=== PATIENT | male | born 1960 | race Caucasian/White ===

== ENCOUNTER → 2017-06-22 | Outpatient (REF) | payer BC ==
[~2017-06-22] MED LIST: ADV500INH INH; ALLE180T33 PO; BENA25CA2 PO; BREO1INH3 INH; CETI10TA PO; MOME50SP; MONT10TA2 PO; OMEP20CA3 PO; PRED10TA2 PO; QVAR1AER2 INH; RANI300T PO; SING10TA32 PO; TYLE167L PO; VENTAER IN; VICO5TAB16 PO; vicodin PO
[2017-06-22 13:33] LABS: BASO % 0.4 % (0.0-1.0); EOS # 0.1 K/mm3 (0.0-0.50); EOS % 1.6 % (0.0-3.0); LARGE UNSTAINED CELL # 0.1 K/mm3 (0.0-0.4); LARGE UNSTAINED CELL % 1.4 % (0.0-4.0); LYMPH # 0.5 K/mm3 (1.5-4.5); MEAN CORPUSCULAR HEMOGLOBIN 27.4 pg (27.0-33.0); MEAN CORPUSCULAR HGB CONC 34.5 g/dl (32.0-36.5); MEAN CORPUSCULAR VOLUME 79.4 fl (80.0-96.0); MONO # 0.5 K/mm3 (0.0-0.8); MONO % 6.2 % (0.0-5.0); NEUTROPHILS # 6.6 K/mm3 (1.8-7.7); NEUTROPHILS % 85.5 % (36.0-66.0); PLATELET COUNT, AUTOMATED 247 k/mm3 (150-450); WHITE BLOOD COUNT 7.8 K/mm3 (4.0-10.0)
[2017-06-22 15:57] LABS: ADD MANUAL DIFFER NO; DIFF SLIDE NUMBER 265
[2017-06-25 00:06] LABS: E001-IgE Cat Epith/Dander < 0.10 kU/L (Class 0); E005-IgE Dog Dander 0.35 kU/L (Class I); G002-IgE Bermuda Grass < 0.10 kU/L (Class 0); G008-IgE Kentucky Bluegrass < 0.10 kU/L (Class 0); M001-IgE Penicillium chrysogen 0.56 kU/L (Class II); M002 IgE Cladosporium herbaru < 0.10 kU/L (Class 0); M003 IgE Aspergillus fumigatu 0.19 kU/L (Class 0/I); M006-IgE Alternaria alternata 1.41 kU/L (Class III); T001-IgE Maple/Box Elder < 0.10 kU/L (Class 0); T003-IgE Common Silver Birch < 0.10 kU/L (Class 0); T007-IgE Oak, White < 0.10 kU/L (Class 0); T008-IgE Elm, American 0.16 kU/L (Class 0/I); T015-IgE Ash, White 0.12 kU/L (Class 0/I); T041-IgE Hickory, White < 0.10 kU/L (Class 0); W009-IgE Plantain, English 0.11 kU/L (Class 0/I); W014-IgE Pigweed, Rough < 0.10 kU/L (Class 0); W018-IgE Sheep Sorrel < 0.10 kU/L (Class 0)
== END ==
LOC: M LAB REF 12:58
PROVIDERS: ATTEND Internal Medicine Pulmonary Disease
DX: J45.40 Moderate persistent asthma, uncomplicated (principal)

== ENCOUNTER → 2017-08-16 | Outpatient (CLI) | payer BC ==
[2017-08-21 00:07] LABS: AUREOBASIDIUM PULLULANS Negative (Negative); MICROPOLYSPORA FAENI AB Negative (Negative); PIGEON SERUM AB Negative (Negative); THERMOACTINOMYCES SACCHARI Negative (Negative); THERMOACTINOMYCES VULGARIS Negative (Negative)
== END ==
LOC: M SMT 11:27
PROVIDERS: ATTEND Allergy & Immunology Allergy
DX: J45.50 Severe persistent asthma, uncomplicated (principal); D86.9 Sarcoidosis, unspecified; G47.30 Sleep apnea, unspecified; J30.81 Allergic rhinitis due to animal (cat) (dog) hair and dander

== ENCOUNTER 2018-06-14 06:16 | Day surgery (SDC) | payer BC ==
[2018-06-14] MEDS ORDERED: dexameTHASONE 4 MG/ML 1ML VIAL (J1100) As Ordered (06:18)
[2018-06-14] MEDS ORDERED: KETOROLAC 60 MG/2 ML VIAL (J1885) As Ordered (06:18)
[2018-06-14] MEDS ORDERED: ONDANSETRON 4MG/2ML VIAL (J2405) As Ordered (06:18)
[2018-06-14] MEDS ORDERED: PROPOFOL 200 MG/20 ML VIAL As Ordered ×2 (06:18→07:51)
[2018-06-14] MEDS ORDERED: ROCURONIUM BROMIDE 50 MG/5 ML VIAL As Ordered ×2 (06:19→07:51)
[2018-06-14] MEDS ORDERED: LIDOCAINE 2% INJ 100 MG/5 ML SDV (FOR ANES.) As Ordered (06:19)
[2018-06-14] MEDS ORDERED: fentaNYL 250 MCG/5 ML INJECTION (J3010) As Ordered (06:23)
[2018-06-14] MEDS ORDERED: MIDAZOLAM INJ 2 MG/2 ML VIAL (J2250) As Ordered (06:23)
[2018-06-14] MEDS ORDERED: LR 1,000 ML IV ×3 (06:30→09:15)
[2018-06-14] MEDS ORDERED: ceFAZolin 1GM INJ (J0690 PER 500MG) As Ordered (06:51)
[2018-06-14] MEDS: ceFAZolin SOD 1 GM in D5W MINI-BAG PLUS 50 ML IV (07:27)
[2018-06-14] MEDS ORDERED: SUGAMMADEX SODIUM 500 MG/5 ML VIAL (BRIDION) As Ordered (07:52)
[2018-06-14] MEDS: BUPIVACAINE/EPIN 0.25% 30 ML VIAL As Ordered ×2 (08:35)
[2018-06-14] MEDS ORDERED: ALBUTEROL SULFATE 2.5 MG/0.5 ML INH NEB SOLN As Ordered (08:46)
[2018-06-14] MEDS ORDERED: PERCOCET 5MG/325MG TAB As Ordered (09:04)
[2018-06-14] MEDS ORDERED: fentaNYL 100 MCG/2 ML INJECTION (J3010) As Ordered (09:04)
[2018-06-14] MEDS: PERCOCET 5MG/325MG TAB PO ×2 (09:08→09:48)
[2018-06-14] MEDS: fentaNYL 100 MCG/2 ML INJECTION (J3010) IV (09:08)
[2018-06-14] MEDS ORDERED: ALBUTEROL SULFATE 2.5 MG/0.5 ML INH NEB SOLN INH (09:15)
[2018-06-14] MEDS ORDERED: NORCO, ANEXSIA 5/325MG TABLET (HYDROcodone/ACETAMINOPHEN) PO (09:15)
[2018-06-14] MEDS ORDERED: ONDANSETRON 4MG/2ML VIAL (J2405) IV ×2 (09:15)
[2018-06-14] MEDS ORDERED: MORPHINE 2 MG/ML 1ML SYRINGE (J2270) IV (09:15)
== END 2018-06-14 13:30 | disposition home or self-care (01) ==
LOC: M SDC 06:16
DX: K42.0 Umbilical hernia with obstruction, without gangrene (principal); G47.30 Sleep apnea, unspecified; Z91.040 Latex allergy status; K21.9 Gastro-esophageal reflux disease without esophagitis; E66.01 Morbid (severe) obesity due to excess calories; Z79.899 Other long term (current) drug therapy; J45.909 Unspecified asthma, uncomplicated
CPT/HCPCS: 49587

== ENCOUNTER → 2018-09-06 | Outpatient (CLI) | payer BC | LOC: M ADAMS 14:03 | DX: M79.642 Pain in left hand (principal) | CPT/HCPCS: 73130 ==

== ENCOUNTER 2019-08-11 12:58 | Emergency (ER) | payer BC ==
[~2019-08-11] VITALS: Ht 185.4 cm; Wt 127.5 kg
[~2019-08-11 12:58] MED LIST changes: -OMEP20CA3 PO; +OMEP20CA4 PO; -QVAR1AER2 INH; +QVAR80AE10 INH; +VENTAER; -VICO5TAB16 PO; +VICO5TAB17 PO; +XOLA150S IM
[2019-08-11] MEDS ORDERED: ADACEL/BOOSTRIX VACCINE (DIPHTH/PERTUSS/ACELL/TETANUS)0.5ML SYR (90715) IM ONE (15:45)
[2019-08-11] MEDS ORDERED: PERCOCET 5MG/325MG TAB PO ONE (15:45)
[2019-08-11] MEDS ORDERED: ACETAMINOPHEN 325 MG TAB PO ONE (15:45)
[2019-08-11] MEDS ORDERED: PERCOCET PO (17:06)
[2019-08-11] MEDS ORDERED: MUPI30CR TOP (17:11)
[2019-08-11] MEDS ORDERED: NEOSPORIN OINT 0.9 GM PKT (FLOOR STOCK) TOP ONE (17:30)
[2019-08-11 17:38] VITALS: BP 130/80
== END 2019-08-11 17:36 | disposition home or self-care (01) ==
LOC: M ED 12:58
DX: S80.811A Abrasion, right lower leg, initial encounter (principal); S80.812A Abrasion, left lower leg, initial encounter; X58.XXXA Exposure to other specified factors, initial encounter; Y92.018 Other place in single-family (private) house as the place of occurrence of the external cause; Z79.899 Other long term (current) drug therapy; Z88.8 Allergy status to other drugs, medicaments and biological substances; Z91.018 Allergy to other foods; Z91.040 Latex allergy status; Z91.048 Other nonmedicinal substance allergy status

== ENCOUNTER 2020-09-26 19:10 | Observation (INO) | payer OTHER, BC ==
[~2020-09-26] VITALS: Ht 182.9 cm; Wt 132.1 kg
[~2020-09-26 19:10] MED LIST changes: +MUPI30CR TOP; +OMEP1CAP73 PO; -OMEP20CA4 PO; +PERCOCET PO
[2020-09-26] MEDS ORDERED: MORPHINE 2 MG/ML 1ML VIAL (J2270) IV PRN ×2 (19:45→21:45)
[2020-09-26] MEDS ORDERED: ISOVUE-370 76% 100ML VIAL As Ordered ONE (19:45)
[2020-09-26] MEDS ORDERED: NS 1,000 ML IV ONE ×2 (19:45→21:45)
--- NOTE | 2020-09-26 19:56 | REP ---
INDICATION: trauma, history of sarcoidosis with conglomerate hilar densities and pulmonary nodules previously. COMPARISON: Chest x-ray 07/30/2017, CT chest 06/24/2017 TECHNIQUE: AP portable chest FINDINGS: Lungs are hypoinflated. Perihilar densities are seen bilaterally and some hilar fullness may be related to low lung volumes or his known sarcoidosis. Superimposed lung contusion or atelectasis could also be considered. Pneumonitis not excluded. No gross effusion. Heart size not enlarged for portable technique. Haziness left lateral base could be parenchymal finding, small effusions/contusion or superimposed chest wall soft tissues. The aorta is tortuous. No widening of the mediastinum allowing for AP portable technique with hypoinflation. Bones grossly intact. IMPRESSION: Hypoinflated chest with bilateral hilar fullness and perihilar densities in this patient with known chronic sarcoidosis. Superimposed atelectasis, lung contusions or infiltrates in the perihilar regions could give this appearance. Crowded markings noted due to low level of inflation. No gross effusion but a small left effusion not excluded with haziness at the left lateral base. <Electronically signed by García Sanders > 09/26/201951
[2020-09-26 20:04] LABS: BASO % 0.3 % (0.0-1.0); EOS # 0.2 10^3/uL (0.0-0.5); EOS % 1.4 % (0.0-3.0); HEMATOCRIT 42.5 % (42.0-52.0); HEMOGLOBIN 13.8 g/dl (13.5-17.5); LYMPH # 0.4 10^3/uL (1.5-5.0); LYMPH % 3.3 % (24.0-44.0); MEAN CORPUSCULAR HEMOGLOBIN 26.4 pg (27.0-33.0); MEAN CORPUSCULAR HGB CONC 32.5 g/dl (32.0-36.5); MEAN CORPUSCULAR VOLUME 81.3 fl (80.0-96.0); MONO # 0.8 10^3/uL (0.0-0.8); MONO % 6.9 % (0.0-5.0); NEUTROPHILS # 10.1 10^3/uL (1.5-8.5); NEUTROPHILS % 86.5 % (36.0-66.0); PLATELET COUNT, AUTOMATED 279 10^3/uL (150-450); RED BLOOD COUNT 5.23 10^6/uL (4.30-6.10); WHITE BLOOD COUNT 11.7 10^3/uL (4.0-10.0)
[2020-09-26 20:15] LABS: INR 0.98; PROTHROMBIN TIME 13.2 SECONDS (12.5-14.3)
[2020-09-26 20:16] LABS: PARTIAL THROMBOPLASTIN TIME 32.5 SECONDS (24.2-38.5)
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
[2020-09-26 20:49] LABS: ALBUMIN 3.9 GM/DL (3.2-5.2); ALT/SGPT 36 U/L (12-78); AMYLASE 33 U/L (25-115); BILIRUBIN,DIRECT 0.1 MG/DL (0.0-0.2); BILIRUBIN,TOTAL 0.6 MG/DL (0.2-1.0); CK-MB VALUE MASS 51.8 NG/ML (<3.6); CPK CREATINE PHOSPHOKINASE 1874 U/L (39-308); ETHYL ALCOHOL (ETHANOL) < 0.003 % (0.000-0.010); LIPASE 83 U/L (73-393); MB/CK RELATIVE INDEX 2.76 (< OR =4); TOTAL PROTEIN 7.5 GM/DL (6.4-8.2); TROPONIN I < 0.02 NG/ML (< 0.10)
[2020-09-26] MEDS ORDERED: KETOROLAC 30 MG/ML 1ML VIAL IV ONE (21:30)
[2020-09-26] MEDS ORDERED: SENOKOT S TAB PO PRN (21:45)
[2020-09-26] MEDS ORDERED: NALOXONE INJ 0.4MG/1ML VIAL (J2310 PER 1MG) IV PRN (21:45)
[2020-09-26] MEDS ORDERED: MOM 30ML SUSPENSION UDC PO PRN (21:45)
[2020-09-26] MEDS ORDERED: MIRALAX *UNIT DOSE* 17GM PACKET PO PRN (21:45)
[2020-09-26] MEDS ORDERED: VENTAER INH (21:51)
[2020-09-26] MEDS ORDERED: SING10TA32 PO (21:58)
[2020-09-26] MEDS ORDERED: XOLA150I SC (21:58)
[2020-09-26] MEDS ORDERED: QVAR80AE8 INH (21:58)
[2020-09-26] MEDS ORDERED: AMOX500C PO (21:58)
[2020-09-26] MEDS ORDERED: IBUP1TAB6 PO (21:58)
[2020-09-26] MEDS ORDERED: BREO1INH3 INH (21:58)
[2020-09-26] MEDS ORDERED: OMEP-218 PO (21:58)
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
[2020-09-26] MEDS ORDERED: ALBUTEROL 90 MCG/ACT 8GM HFA INHALER INH PRN (23:00)
[2020-09-26 23:04] VITALS: BP 156/95
[2020-09-26] MEDS: MONTELUKAST 10 MG TAB PO SCH (23:32)
[2020-09-26] MEDS: PERCOCET 5MG/325MG TAB PO PRN (23:34)
[2020-09-27 00:43] LABS: CK-MB VALUE MASS 84.7 NG/ML (<3.6); CPK CREATINE PHOSPHOKINASE 3082 U/L (39-308); MB/CK RELATIVE INDEX 2.75 (< OR =4); TROPONIN I < 0.02 NG/ML (< 0.10)
[2020-09-27] MEDS ORDERED: NS 1,000 ML IV SCH (02:15)
[2020-09-27 06:00] VITALS: BP 130/85
[2020-09-27 06:02] LABS: HEMATOCRIT 37.8 % (42.0-52.0); HEMOGLOBIN 12.1 g/dl (13.5-17.5); MEAN CORPUSCULAR HEMOGLOBIN 25.9 pg (27.0-33.0); MEAN CORPUSCULAR VOLUME 80.9 fl (80.0-96.0); PLATELET COUNT, AUTOMATED 229 10^3/uL (150-450); RED BLOOD COUNT 4.67 10^6/uL (4.30-6.10); WHITE BLOOD COUNT 7.2 10^3/uL (4.0-10.0)
[2020-09-27 06:45] LABS: BLOOD UREA NITROGEN 15 MG/DL (7-18); CALCIUM LEVEL 7.8 MG/DL (8.8-10.2); CARBON DIOXIDE LEVEL 24 MEQ/L (21-32); CHLORIDE LEVEL 111 MEQ/L (98-107); CK-MB VALUE MASS 69.1 NG/ML (<3.6); CPK CREATINE PHOSPHOKINASE 3008 U/L (39-308); CREATININE FOR GFR 0.89 MG/DL (0.70-1.30); GLOMERULAR FILTRATION RATE > 60.0 (>49); GLUCOSE, FASTING 112 MG/DL (70-100); POTASSIUM SERUM 3.9 MEQ/L (3.5-5.1); SODIUM LEVEL 140 MEQ/L (136-145); TROPONIN I < 0.02 NG/ML (< 0.10)
[2020-09-27] MEDS: OMEPRAZOLE 20 MG CAP PO SCH (08:07)
[2020-09-27] MEDS: PERCOCET 5MG/325MG TAB PO PRN ×3 (08:08→19:52)
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
[2020-09-27] MEDS: KCL 20MEQ IN 0.45NS 1000ML 1,000 ML IV SCH ×2 (11:56→19:49)
[2020-09-27 13:22] LABS: CK-MB VALUE MASS 58.7 NG/ML (<3.6); CPK CREATINE PHOSPHOKINASE 3368 U/L (39-308); MB/CK RELATIVE INDEX 1.74 (< OR =4); TROPONIN I < 0.02 NG/ML (< 0.10)
[2020-09-27] MEDS: predniSONE 20 MG TAB PO SCH (13:38)
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
--- NOTE | 2020-09-27 19:21 | ECGEPIP ---
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
[2020-09-27] MEDS: ADVAIR HFA 230/21MCG INHALER INH SCH (20:34)
[2020-09-27 22:00] VITALS: BP 161/88
[2020-09-27] MEDS: MONTELUKAST 10 MG TAB PO SCH (23:16)
[2020-09-28] MEDS: KCL 20MEQ IN 0.45NS 1000ML 1,000 ML IV SCH ×2 (03:17→11:00)
[2020-09-28 06:00] VITALS: BP 129/82
[2020-09-28 07:20] LABS: HEMOGLOBIN 11.7 g/dl (13.5-17.5); MEAN CORPUSCULAR HEMOGLOBIN 26.4 pg (27.0-33.0); MEAN CORPUSCULAR HGB CONC 32.5 g/dl (32.0-36.5); MEAN CORPUSCULAR VOLUME 81.1 fl (80.0-96.0); PLATELET COUNT, AUTOMATED 230 10^3/uL (150-450); RED BLOOD COUNT 4.44 10^6/uL (4.30-6.10); WHITE BLOOD COUNT 7.4 10^3/uL (4.0-10.0)
[2020-09-28] MEDS: ADVAIR HFA 230/21MCG INHALER INH SCH (07:23)
[2020-09-28 07:54] LABS: BLOOD UREA NITROGEN 11 MG/DL (7-18); CALCIUM LEVEL 8.1 MG/DL (8.8-10.2); CARBON DIOXIDE LEVEL 25 MEQ/L (21-32); CHLORIDE LEVEL 108 MEQ/L (98-107); CPK CREATINE PHOSPHOKINASE 2664 U/L (39-308); GLOMERULAR FILTRATION RATE > 60.0 (>49); GLUCOSE, FASTING 89 MG/DL (70-100); POTASSIUM SERUM 4.2 MEQ/L (3.5-5.1); SODIUM LEVEL 140 MEQ/L (136-145)
[2020-09-28] MEDS ORDERED: PRED20TA PO (09:30)
[2020-09-28] MEDS: OMEPRAZOLE 20 MG CAP PO SCH (09:46)
[2020-09-28] MEDS: predniSONE 20 MG TAB PO SCH (09:47)
[2020-09-28] MEDS: PERCOCET 5MG/325MG TAB PO PRN (09:47)
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
--- NOTE | 2020-09-30 13:26 | NOCOX ---
DATE: 09/28/2020 Nocturnal oximetry study was performed on CPAP at 12 cm of H2O. The patients O2 saturation ranged from a high of 100% to a low of 92%. There was no desaturation noted overnight with no O2 saturation less than 88% while wearing his CPAP. Graphically, there was no significant O2 saturation variability and no significant heart rate variability. IMPRESSION: Nocturnal oximetry study performed well on CPAP at 12 cm of H2O did not show any significant desaturation and no O2 saturation variability noted overnight. The patient does not require any O2 bleed for use with his CPAP at the current settings. KOURTNEY
--- NOTE | 2020-10-01 09:04 | ECHO ---
DATE OF PROCEDURE: 09/27/2020 Age: 60 Gender: Male Height: 183 cm Weight: 132 kg REFERRING PHYSICIAN: Herminia Blake MD INDICATION: Sarcoidosis. MEASUREMENTS: 2D Measurements: Proximal ascending aorta 3.4 cm Left atrium 4.4 cm Left atrial volume index 42 cm Interventricular septum 1.33 cm Posterior wall 1.30 cm Aortic root 3.2 cm Inferior vena cava 3.1 cm with normal respiratory variation Doppler Measurements: No aortic stenosis No aortic regurgitation Aortic valve velocity 178 cm/s LVOT velocity 104 cm/s LVOT VTI 20.4 cm Trace mitral regurgitation Mitral E 70.3 velocity cm/s Mitral A velocity 79.3 cm/s Mitral deceleration time 201 msec Mild tricuspid regurgitation Estimated right ventricular systolic pressure 50-55 mmHg Estimated right atrial pressure 5-10 mmHg No pulmonic regurgitation Pulmonary artery acceleration time 111 msec MITRAL ANNULAR TISSUE DOPPLER E prime septal 9.5 cm/s, E prime lateral 11.1 cm/s TAPSE 2.8 cm DESCRIPTION: Rhythm was sinus. This was a moderately technically difficult echocardiogram. This was a 2D, M-mode, color flow Doppler, and pulsed wave Doppler examination including mitral annular tissue Doppler. CONCLUSIONS: 1. Mild concentric left ventricular hypertrophy. Normal regional left ventricular (LV) wall motion and wall thickening. Normal left ventricular (LV) systolic function. Left ventricular ejection fraction (LVEF) of 60% by visual estimate. Normal left ventricular (LV) diastolic function. 2. Suggestive of moderate elevation of estimated right ventricle systolic pressure 50-55 mmHg. Normal right ventricle size and systolic function. Mild tricuspid regurgitation. No atrial septal defect or patent foramen ovale (PFO) detected by color flow Doppler. 3. Inferior vena cava dilatation (3.1 cm) with normal respiratory variation. 4. Mild left atrial dilatation by AP dimension versus severe left atrial dilatation by left atrial volume index. 5. No pericardial effusion. 6. Mild mitral annular calcification. Trace mitral regurgitation. 7. Moderately technically echocardiogram. ADDITIONAL COMMENTS/RECOMMENDATIONS: Cardiac MRI is a superior technology for evaluation of cardiac sarcoidosis. It is more sensitive and more specific. MTDD
== END 2020-09-28 11:21 | disposition home or self-care (01) ==
LOC: M ED 19:10 → M ED INP 19:11 → ENRESERV 22:17 → M MSPAV 23:04
PROVIDERS: ADMIT General Practice; ATTEND Family Medicine
DX: M62.82 Rhabdomyolysis (principal); S20.219A Contusion of unspecified front wall of thorax, initial encounter; W30.89XA Contact with other specified agricultural machinery, initial encounter; Y92.79 Other farm location as the place of occurrence of the external cause; J45.50 Severe persistent asthma, uncomplicated; D86.9 Sarcoidosis, unspecified; G47.33 Obstructive sleep apnea (adult) (pediatric); Z79.51 Long term (current) use of inhaled steroids; Z79.899 Other long term (current) drug therapy; Z91.018 Allergy to other foods; Z91.040 Latex allergy status
CPT/HCPCS: 36415; 70450; 71045; 71260; 72125; 74177; 80048; 80076; 81001; 82150; 82550; 82553; 83605; 83690; 84484; 85025; 85027; 85610; 85730; 86850; 86900; 86901; 93005; 93041; 93306; 94640; 94760; 94762; 96361; 96374; 96375; 96376; 97161; 97530; 99285; G0480; J1885; J2270; Q9967; U0002

== ENCOUNTER → 2020-10-07 | Outpatient (REF) | payer BC ==
[~2020-10-07] MED LIST changes: +AMOX500C PO; +IBUP1TAB6 PO; +OMEP-218 PO; +PRED20TA PO; +QVAR80AE8 INH; +VENTAER INH; +XOLA150I SC
== END ==
LOC: M SFHCADAM 10:09
PROVIDERS: ATTEND Family Medicine
DX: T79.6XXD Traumatic ischemia of muscle, subsequent encounter (principal)

== ENCOUNTER → 2020-10-07 | Outpatient (CLI) | payer BC ==
--- NOTE | 2020-10-07 14:27 | REP ---
INDICATION: LUMBAR SPINE PAIN COMPARISON: 06/08/2014 TECHNIQUE: AP, lateral, bilateral oblique, and coned-down views of the lumbar spine. FINDINGS: Alignment and lordosis maintained. There is very subtle compression deformity along the superior endplate of T12 which may represent a mild nonacute compression injury relatively new as compared to 2013 examination. No further acute fracture/compression injury or subluxation noted. Advanced degenerative disc osteophyte complex at L5-S1 includes endplate sclerosis, disc space narrowing, osteophytosis and hypertrophic facet changes which have progressed since prior examination. Remainder of examination demonstrates moderate age-related changes. IMPRESSION: 1. Advanced focal degenerative spondylosis at L5-S1 increased from prior examination. 2. Very subtle compression deformity along the superior endplate of T12 represents a relatively new finding as compared to 2013 examination. <Electronically signed by Navneet Blackman > 10/07/20 [id number]
== END ==
LOC: M ADAMS 10:12
PROVIDERS: ATTEND Family Medicine
DX: M51.37 Other intervertebral disc degeneration, lumbosacral region (principal); M25.78 Osteophyte, vertebrae; T79.6XXD Traumatic ischemia of muscle, subsequent encounter

== ENCOUNTER → 2020-10-22 | Outpatient (CLI) | payer SELFPAY | LOC: EEVIPCON 16:46 → M LABSMTC 16:46 | PROVIDERS: ATTEND Pediatrics | DX: Z11.59 Encounter for screening for other viral diseases (principal) ==

== ENCOUNTER → 2020-10-24 | Outpatient (REF) | payer BC | LOC: M LABDRWAD 16:24 | PROVIDERS: ATTEND Nurse Practitioner Family | DX: Z12.5 Encounter for screening for malignant neoplasm of prostate (principal) ==

== ENCOUNTER → 2022-01-21 | Outpatient (CLI) | payer OTHER ==
[~2022-01-21] MED LIST changes: -MOME50SP; +NASO50SP3; +OMEP-173 PO; -OMEP-218 PO
[2022-01-21 12:15] LABS: ALBUMIN 3.5 GM/DL (3.2-5.2); BILIRUBIN,DIRECT 0.1 MG/DL (0.0-0.2); BILIRUBIN,TOTAL 0.5 MG/DL (0.2-1.0)
== END ==
LOC: M LAB 10:18
PROVIDERS: ATTEND Internal Medicine Pulmonary Disease
DX: J45.50 Severe persistent asthma, uncomplicated (principal)

== ENCOUNTER → 2022-02-25 | Outpatient (REF) | payer OTHER ==
[2022-02-25 13:23] LABS: BASO # 0.1 10^3/uL (0.0-0.2); BASO % 0.8 % (0.0-1.0); EOS # 0.3 10^3/uL (0.0-0.5); EOS % 3.9 % (0.0-3.0); HEMATOCRIT 42.4 % (42.0-52.0); LYMPH # 0.5 10^3/uL (1.5-5.0); LYMPH % 7.2 % (24.0-44.0); MEAN CORPUSCULAR HEMOGLOBIN 26.6 pg (27.0-33.0); MEAN CORPUSCULAR VOLUME 80.5 fl (80.0-96.0); MONO # 0.8 10^3/uL (0.0-0.8); MONO % 11.3 % (2.0-8.0); NEUTROPHILS # 5.6 10^3/uL (1.5-8.5); NEUTROPHILS % 76.5 % (36.0-66.0); PLATELET COUNT, AUTOMATED 269 10^3/uL (150-450); RED BLOOD COUNT 5.27 10^6/uL (4.30-6.10); WHITE BLOOD COUNT 7.4 10^3/uL (4.0-10.0)
[2022-02-25 13:51] LABS: ALBUMIN 3.7 GM/DL (3.2-5.2); ALT/SGPT 27 U/L (12-78); BILIRUBIN,TOTAL 0.5 MG/DL (0.2-1.0); BLOOD UREA NITROGEN 16 MG/DL (7-18); CALCIUM LEVEL 9.1 MG/DL (8.8-10.2); CARBON DIOXIDE LEVEL 27 MEQ/L (21-32); CHLORIDE LEVEL 107 MEQ/L (98-107); GLOMERULAR FILTRATION RATE > 60.0 (>49); GLUCOSE, FASTING 93 MG/DL (70-100); POTASSIUM SERUM 4.2 MEQ/L (3.5-5.1); SODIUM LEVEL 139 MEQ/L (136-145); TOTAL PROTEIN 7.2 GM/DL (6.4-8.2)
== END ==
LOC: M SFHCADAM 10:52
PROVIDERS: ATTEND Family Medicine
DX: Z01.818 Encounter for other preprocedural examination (principal); Z79.899 Other long term (current) drug therapy

== ENCOUNTER → 2022-02-25 | Outpatient (CLI) | payer OTHER | LOC: M LABSMTC 09:05 | PROVIDERS: ATTEND Anesthesiology | DX: Z01.812 Encounter for preprocedural laboratory examination (principal); Z11.52 Encounter for screening for COVID-19 ==

== ENCOUNTER 2022-03-02 11:46 | Day surgery (SDC) | payer OTHER ==
[~2022-03-02] VITALS: Ht 182.9 cm; Wt 124.6 kg
[~2022-03-02 11:46] MED LIST changes: +LR 1,000 ML IV ONE
[2022-03-02] MEDS ORDERED: LIDOCAINE 2% 100MG/5ML SDV (FOR ANES.) As Ordered ONE (12:18)
[2022-03-02] MEDS ORDERED: propofoL 200 MG/20 ML VIAL As Ordered ONE (12:18)
[2022-03-02] MEDS ORDERED: ROCURONIUM BROMIDE 50 MG/5 ML VIAL As Ordered ONE (12:19)
[2022-03-02] MEDS ORDERED: ONDANSETRON 4MG/2ML VIAL As Ordered ONE (12:20)
[2022-03-02] MEDS ORDERED: MIDAZOLAM INJ 2MG/2ML VIAL (J2250 PER 1MG) As Ordered ONE (12:20)
[2022-03-02] MEDS ORDERED: fentaNYL 100 MCG/2 ML INJECTION As Ordered ONE (12:20)
[2022-03-02] MEDS ORDERED: dexameTHASONE 4 MG/ML 1ML VIAL (J1100 PER 1MG) As Ordered ONE (12:20)
[2022-03-02] MEDS ORDERED: SUGAMMADEX SODIUM 500 MG/5 ML VIAL (BRIDION) As Ordered ONE (12:29)
[2022-03-02] MEDS ORDERED: OXYMETAZOLINE 0.05% NASAL SPRAY (AFRIN) As Ordered ONE (14:07)
[2022-03-02] MEDS ORDERED: ALBUTEROL 6.7GM INHALER **FOR ANES. CART/OMNICELL ONLY As Ordered ONE (14:22)
[2022-03-02] MEDS ORDERED: ACETAMINOPHEN 1000MG 100ML IV BTL (OFIRMEV) (J0131 PER 10MG) As Ordered ONE (14:55)
[2022-03-02] MEDS ORDERED: ONDANSETRON 4MG/2ML VIAL IV PRN ×2 (15:40→15:45)
[2022-03-02] MEDS ORDERED: LR 1,000 ML IV SCH ×2 (15:40→15:45)
[2022-03-02] MEDS ORDERED: fentaNYL 100 MCG/2 ML INJECTION IV PRN (15:40)
[2022-03-02] MEDS ORDERED: oxyCODONE 5MG TAB PO PRN (15:40)
[2022-03-02] MEDS ORDERED: HYDROcodone/APAP LIQUID 7.5-325MG 15ML UDC (LORTAB ELIXIR) PO PRN (15:45)
[2022-03-02 15:55] VITALS: BP 125/78
== END 2022-03-02 16:18 | disposition home or self-care (01) ==
LOC: M SDC 11:46
PROVIDERS: ATTEND Otolaryngology
DX: C32.0 Malignant neoplasm of glottis (principal); J38.3 Other diseases of vocal cords; R49.0 Dysphonia; J34.2 Deviated nasal septum; J37.0 Chronic laryngitis; J32.0 Chronic maxillary sinusitis; J34.3 Hypertrophy of nasal turbinates; R51.9 Headache, unspecified; J45.40 Moderate persistent asthma, uncomplicated; K21.9 Gastro-esophageal reflux disease without esophagitis; D86.0 Sarcoidosis of lung; R06.83 Snoring; E66.9 Obesity, unspecified; Z68.30 Body mass index [BMI] 30.0-30.9, adult; G47.33 Obstructive sleep apnea (adult) (pediatric); Z79.899 Other long term (current) drug therapy; Z79.51 Long term (current) use of inhaled steroids; Z86.16 Personal history of COVID-19; Z91.018 Allergy to other foods; Z91.040 Latex allergy status; Z91.048 Other nonmedicinal substance allergy status
CPT/HCPCS: 31536; 88305; 93005; J0131; J1100; J2250; J2405; J3010

== ENCOUNTER → 2022-03-16 | Outpatient (CLI) | payer OTHER ==
[~2022-03-16] MED LIST changes: +ALBU8.5H INH; +ISOVUE-370 76% 100ML VIAL As Ordered ONE; -LR 1,000 ML IV ONE; +TRIA1CR80 EXT
== END ==
LOC: M RAD 12:01
PROVIDERS: ATTEND Otolaryngology
DX: J32.9 Chronic sinusitis, unspecified (principal); R91.8 Other nonspecific abnormal finding of lung field; C32.9 Malignant neoplasm of larynx, unspecified
CPT/HCPCS: 70491; Q9967

== ENCOUNTER → 2022-03-17 | Outpatient (CLI) | payer OTHER ==
[~2022-03-17] MED LIST changes: -ISOVUE-370 76% 100ML VIAL As Ordered ONE
== END ==
LOC: M ONCR 15:27
PROVIDERS: ATTEND General Practice
DX: C32.0 Malignant neoplasm of glottis (principal); R91.8 Other nonspecific abnormal finding of lung field; Z80.6 Family history of leukemia; Z88.8 Allergy status to other drugs, medicaments and biological substances; Z91.018 Allergy to other foods; Z91.040 Latex allergy status; Z91.048 Other nonmedicinal substance allergy status
CPT/HCPCS: 31575; G0463

== ENCOUNTER → 2022-04-14 | Outpatient (RCR) | payer OTHER | LOC: M ONCR 03-26 08:37 | PROVIDERS: ATTEND General Practice | DX: C32.0 Malignant neoplasm of glottis (principal) ==

== ENCOUNTER 2022-05-12 14:15 | Outpatient (RCR) | payer OTHER | END 2022-05-14 | LOC: M ONCR 14:15 | PROVIDERS: ATTEND General Practice | DX: C32.0 Malignant neoplasm of glottis (principal) ==

== ENCOUNTER → 2022-08-13 | Outpatient (CLI) | payer OTHER | LOC: M ONCR 14:22 | PROVIDERS: ATTEND General Practice | DX: Z08 Encounter for follow-up examination after completed treatment for malignant neoplasm (principal); Z85.21 Personal history of malignant neoplasm of larynx; D86.0 Sarcoidosis of lung; Z79.1 Long term (current) use of non-steroidal anti-inflammatories (NSAID); Z79.51 Long term (current) use of inhaled steroids; Z79.899 Other long term (current) drug therapy; Z88.8 Allergy status to other drugs, medicaments and biological substances; Z91.018 Allergy to other foods; Z91.040 Latex allergy status; Z91.048 Other nonmedicinal substance allergy status; Z92.3 Personal history of irradiation | CPT/HCPCS: 31575; G0463 ==

== ENCOUNTER → 2022-11-12 | Outpatient (CLI) | payer OTHER | LOC: M ONCR 13:59 | PROVIDERS: ATTEND General Practice | DX: C32.0 Malignant neoplasm of glottis (principal); D86.0 Sarcoidosis of lung; Z92.3 Personal history of irradiation; R07.0 Pain in throat; R49.0 Dysphonia; R91.1 Solitary pulmonary nodule; Z88.8 Allergy status to other drugs, medicaments and biological substances; Z91.018 Allergy to other foods; Z91.040 Latex allergy status; Z91.09 Other allergy status, other than to drugs and biological substances; Z79.51 Long term (current) use of inhaled steroids; Z79.899 Other long term (current) drug therapy | CPT/HCPCS: 31575; G0463 ==

== ENCOUNTER → 2022-12-11 | Outpatient (CLI) | payer BC, OTHER ==
[~2022-12-11] MED LIST changes: +E-Z-PAQUE 96% w/w SUSP 176GM BTL As Ordered ONE; +PANT40TA29 PO; +VARIBAR NECTAR 40% w/v 240ML SUSP BTL As Ordered ONE; +VARIBAR PUDDING 40% w/v 230ML TUBE As Ordered ONE
== END ==
LOC: M RAD 12:46
PROVIDERS: ATTEND General Practice
DX: C32.0 Malignant neoplasm of glottis (principal); R13.10 Dysphagia, unspecified

== ENCOUNTER → 2023-02-12 | Outpatient (CLI) | payer BC ==
[~2023-02-12] MED LIST changes: -E-Z-PAQUE 96% w/w SUSP 176GM BTL As Ordered ONE; +MONT-5 PO; -SING10TA32 PO; -VARIBAR NECTAR 40% w/v 240ML SUSP BTL As Ordered ONE; -VARIBAR PUDDING 40% w/v 230ML TUBE As Ordered ONE
== END ==
LOC: M ONCR 09:34
PROVIDERS: ATTEND General Practice
DX: C32.0 Malignant neoplasm of glottis (principal); Z79.1 Long term (current) use of non-steroidal anti-inflammatories (NSAID); Z79.51 Long term (current) use of inhaled steroids; Z79.899 Other long term (current) drug therapy; Z87.09 Personal history of other diseases of the respiratory system; Z88.8 Allergy status to other drugs, medicaments and biological substances; Z91.018 Allergy to other foods; Z91.040 Latex allergy status; Z91.048 Other nonmedicinal substance allergy status; Z92.3 Personal history of irradiation
CPT/HCPCS: 31575; G0463

== ENCOUNTER → 2023-05-21 | Outpatient (CLI) | payer BC | LOC: M ONCR 11:23 | PROVIDERS: ATTEND General Practice | DX: Z08 Encounter for follow-up examination after completed treatment for malignant neoplasm (principal); Z85.21 Personal history of malignant neoplasm of larynx; D86.0 Sarcoidosis of lung; Z71.2 Person consulting for explanation of examination or test findings; Z79.51 Long term (current) use of inhaled steroids; Z79.899 Other long term (current) drug therapy; Z91.018 Allergy to other foods; Z91.040 Latex allergy status; Z91.048 Other nonmedicinal substance allergy status; Z92.3 Personal history of irradiation | CPT/HCPCS: 31575; G0463 ==

== ENCOUNTER → 2023-09-21 | Outpatient (CLI) | payer BC | LOC: M ONCR 11:43 | PROVIDERS: ATTEND General Practice | DX: Z08 Encounter for follow-up examination after completed treatment for malignant neoplasm (principal); Z85.21 Personal history of malignant neoplasm of larynx; E89.0 Postprocedural hypothyroidism; Z71.2 Person consulting for explanation of examination or test findings; Z79.51 Long term (current) use of inhaled steroids; Z79.890 Hormone replacement therapy; Z79.899 Other long term (current) drug therapy; Z87.09 Personal history of other diseases of the respiratory system; Z88.8 Allergy status to other drugs, medicaments and biological substances; Z91.018 Allergy to other foods; Z91.040 Latex allergy status; Z91.048 Other nonmedicinal substance allergy status; Z92.3 Personal history of irradiation | CPT/HCPCS: 31575; G0463 ==

== ENCOUNTER → 2023-09-22 | Outpatient (REF) | payer BC ==
[2023-09-22 17:54] LABS: BLOOD UREA NITROGEN 22 MG/DL (9-23); CALCIUM LEVEL 9.1 MG/DL (8.3-10.6); CARBON DIOXIDE LEVEL 28 MMOL/L (20-31); CHLORIDE LEVEL 103 MMOL/L (98-107); CREATININE FOR GFR 1.02 MG/DL (0.70-1.30); FREE T4 1.17 NG/DL (0.89-1.76); GLOMERULAR FILTRATION RATE > 60.0 (>49); GLUCOSE, FASTING 70 MG/DL (74-106); POTASSIUM SERUM 4.3 MMOL/L (3.5-5.1); SODIUM LEVEL 137 MMOL/L (136-145)
[2023-09-22 17:55] LABS: THYROID STIMULATING HORMONE 4.009 uIU/ML (0.55-4.78)
== END ==
LOC: M SFHCADAM 14:11
PROVIDERS: ATTEND Family Medicine
DX: R60.0 Localized edema (principal); E03.8 Other specified hypothyroidism

== ENCOUNTER → 2024-01-20 | Outpatient (CLI) | payer BC ==
[~2024-01-20] MED LIST changes: +ALBU2.5V10 NEB
== END ==
LOC: M ONCR 11:36
PROVIDERS: ATTEND General Practice
DX: Z08 Encounter for follow-up examination after completed treatment for malignant neoplasm (principal); Z85.21 Personal history of malignant neoplasm of larynx; D86.0 Sarcoidosis of lung; Z71.2 Person consulting for explanation of examination or test findings; Z79.51 Long term (current) use of inhaled steroids; Z79.899 Other long term (current) drug therapy; Z88.8 Allergy status to other drugs, medicaments and biological substances; Z91.018 Allergy to other foods; Z91.040 Latex allergy status; Z91.048 Other nonmedicinal substance allergy status; Z92.3 Personal history of irradiation
CPT/HCPCS: 31575; G0463

== ENCOUNTER → 2024-02-02 | Outpatient (CLI) | payer BC | LOC: M RAD 08:05 | PROVIDERS: ATTEND General Practice | DX: C32.0 Malignant neoplasm of glottis (principal); J32.0 Chronic maxillary sinusitis ==

== ENCOUNTER → 2024-03-08 | Outpatient (CLI) | payer BC | LOC: M CARPUL 08:25 | PROVIDERS: ATTEND Family Medicine | DX: R06.09 Other forms of dyspnea (principal) ==

== ENCOUNTER → 2024-04-21 | Outpatient (CLI) | payer BC | LOC: M ONCR 11:34 | PROVIDERS: ATTEND General Practice | DX: Z08 Encounter for follow-up examination after completed treatment for malignant neoplasm (principal); Z85.21 Personal history of malignant neoplasm of larynx; J45.909 Unspecified asthma, uncomplicated; Z87.09 Personal history of other diseases of the respiratory system; Z71.2 Person consulting for explanation of examination or test findings; Z79.51 Long term (current) use of inhaled steroids; Z79.899 Other long term (current) drug therapy; Z88.8 Allergy status to other drugs, medicaments and biological substances; Z91.018 Allergy to other foods; Z91.040 Latex allergy status; Z91.048 Other nonmedicinal substance allergy status; Z92.3 Personal history of irradiation | CPT/HCPCS: 31575; G0463 ==

== ENCOUNTER → 2024-09-06 | Outpatient (REF) | payer BC ==
[2024-09-06 13:30] LABS: HEMATOCRIT 43.1 % (42.0-52.0); HEMOGLOBIN 13.9 g/dl (13.5-17.5); MEAN CORPUSCULAR HEMOGLOBIN 27.4 pg (27.0-33.0); MEAN CORPUSCULAR HGB CONC 32.3 g/dl (32.0-36.5); PLATELET COUNT, AUTOMATED 263 10^3/uL (150-450); RED BLOOD COUNT 5.07 10^6/uL (4.30-6.10); WHITE BLOOD COUNT 6.8 10^3/uL (4.0-10.0)
[2024-09-06 14:14] LABS: PSA SCREENING 0.52 NG/ML (< 4.00)
[2024-09-06 14:17] LABS: HEMOGLOBIN A1c 5.5 % (4.0-6.0)
[2024-09-06 14:18] LABS: FREE T4 1.27 NG/DL (0.89-1.76)
[2024-09-06 14:19] LABS: THYROID STIMULATING HORMONE 4.576 uIU/ML (0.55-4.78)
[2024-09-06 14:20] LABS: ALBUMIN 3.8 G/DL (3.2-5.2); ALKALINE PHOSPHATASE 112 U/L (46-116); ALT/SGPT 40 U/L (7.0-40); AST/SGOT 19 U/L (<34); BILIRUBIN,TOTAL 0.5 MG/DL (0.3-1.2); BLOOD UREA NITROGEN 26 MG/DL (9-23); CALCIUM LEVEL 9.8 MG/DL (8.3-10.6); CARBON DIOXIDE LEVEL 27 MMOL/L (20-31); CHLORIDE LEVEL 111 MMOL/L (98-107); CHOLESTEROL LEVEL 199 MG/DL (<200); CHOLESTEROL RISK RATIO 3.31 (<5); CREATININE FOR GFR 1.04 MG/DL (0.70-1.30); GLOMERULAR FILTRATION RATE > 60.0 (>49); GLUCOSE, FASTING 100 MG/DL (74-106); HDL CHOLESTEROL 60.1 MG/DL (>40); LDL CHOLESTEROL 120.3 MG/DL (<100); NON-HDL-C 138.9 MG/DL; POTASSIUM SERUM 4.6 MMOL/L (3.5-5.1); SODIUM LEVEL 142 MMOL/L (136-145); TRIGLYCERIDES LEVEL 93 MG/DL (<150)
== END ==
LOC: M SFHCADAM 08:52
PROVIDERS: ATTEND Family Medicine
DX: R06.09 Other forms of dyspnea (principal); E03.8 Other specified hypothyroidism; Z12.5 Encounter for screening for malignant neoplasm of prostate; Z13.1 Encounter for screening for diabetes mellitus
CPT/HCPCS: 80053; 80061; 83036; 84439; 84443; 85027; G0103

== ENCOUNTER → 2024-09-20 | Outpatient (CLI) | payer BC | LOC: M OUTALCOH 09:17 | PROVIDERS: ATTEND Psychiatry & Neurology Psychiatry | DX: Z03.89 Encounter for observation for other suspected diseases and conditions ruled out (principal) ==

== ENCOUNTER → 2024-09-26 | Outpatient (CLI) | payer BC | LOC: M RAD 09:12 | PROVIDERS: ATTEND Internal Medicine Pulmonary Disease | DX: J45.50 Severe persistent asthma, uncomplicated (principal); R06.02 Shortness of breath ==

== ENCOUNTER 2024-09-28 12:59 | Outpatient (RCR) | payer BC | END 2024-10-14 | LOC: M OUTALCOH 12:59 | PROVIDERS: ATTEND Psychiatry & Neurology Psychiatry | DX: Z03.89 Encounter for observation for other suspected diseases and conditions ruled out (principal) ==

== ENCOUNTER → 2024-10-18 | Outpatient (REF) | payer BC ==
[2024-10-18 19:05] LABS: BLOOD UREA NITROGEN 21 MG/DL (9-23); CALCIUM LEVEL 9.4 MG/DL (8.3-10.6); CARBON DIOXIDE LEVEL 30 MMOL/L (20-31); CHLORIDE LEVEL 101 MMOL/L (98-107); CREATININE FOR GFR 1.17 MG/DL (0.70-1.30); GLOMERULAR FILTRATION RATE > 60.0 (>49); GLUCOSE, FASTING 77 MG/DL (74-106); POTASSIUM SERUM 4.5 MMOL/L (3.5-5.1); SODIUM LEVEL 137 MMOL/L (136-145)
== END ==
LOC: M SFHCADAM 13:53
PROVIDERS: ATTEND Family Medicine
DX: I50.33 Acute on chronic diastolic (congestive) heart failure (principal)

== ENCOUNTER → 2024-10-20 | Outpatient (CLI) | payer BC, MEDICARE ==
[~2024-10-20] MED LIST changes: +CETACAINE SPRAY 5GM MT ONE
== END ==
LOC: M ONCR 11:15
PROVIDERS: ATTEND General Practice
DX: Z08 Encounter for follow-up examination after completed treatment for malignant neoplasm (principal); Z85.21 Personal history of malignant neoplasm of larynx; R68.2 Dry mouth, unspecified; Z92.3 Personal history of irradiation; Z87.898 Personal history of other specified conditions; Z91.018 Allergy to other foods; Z91.040 Latex allergy status; Z91.048 Other nonmedicinal substance allergy status; Z88.8 Allergy status to other drugs, medicaments and biological substances; Z79.51 Long term (current) use of inhaled steroids; Z79.899 Other long term (current) drug therapy
CPT/HCPCS: 31575; G0463

== ENCOUNTER → 2024-10-30 | Outpatient (REF) | payer BC ==
[~2024-10-30] MED LIST changes: -CETACAINE SPRAY 5GM MT ONE
[2024-10-30 12:50] LABS: BLOOD UREA NITROGEN 24 MG/DL (9-23); CALCIUM LEVEL 9.3 MG/DL (8.3-10.6); CARBON DIOXIDE LEVEL 29 MMOL/L (20-31); CHLORIDE LEVEL 107 MMOL/L (98-107); CREATININE FOR GFR 1.07 MG/DL (0.70-1.30); GLOMERULAR FILTRATION RATE > 60.0 (>49); GLUCOSE, FASTING 122 MG/DL (74-106); MAGNESIUM LEVEL 2.1 MG/DL (1.8-2.4); POTASSIUM SERUM 4.6 MMOL/L (3.5-5.1); SODIUM LEVEL 143 MMOL/L (136-145)
== END ==
LOC: M SFHCADAM 09:45
PROVIDERS: ATTEND Physician Assistant
DX: I50.33 Acute on chronic diastolic (congestive) heart failure (principal)

== ENCOUNTER → 2024-11-03 | Outpatient (CLI) | payer BC ==
[~2024-11-03] MED LIST changes: +ISOVUE-370 76% 100ML VIAL As Ordered ONE
== END ==
LOC: M RAD 14:47
PROVIDERS: ATTEND Physician Assistant
DX: I51.7 Cardiomegaly (principal); R91.8 Other nonspecific abnormal finding of lung field; R06.09 Other forms of dyspnea
CPT/HCPCS: 71275; Q9967

== ENCOUNTER → 2024-11-10 | Outpatient (REF) | payer BC ==
[~2024-11-10] MED LIST changes: -ISOVUE-370 76% 100ML VIAL As Ordered ONE
[2024-11-10 14:11] LABS: ALBUMIN 3.5 G/DL (3.2-5.2); ALKALINE PHOSPHATASE 114 U/L (40-129); ALT/SGPT 26 U/L (7.0-40); AST/SGOT 14 U/L (<34); BILIRUBIN,TOTAL 0.4 MG/DL (0.3-1.2); BLOOD UREA NITROGEN 20 MG/DL (9-23); CALCIUM LEVEL 9.5 MG/DL (8.3-10.6); CARBON DIOXIDE LEVEL 30 MMOL/L (20-31); CHLORIDE LEVEL 104 MMOL/L (98-107); CREATININE FOR GFR 1.16 MG/DL (0.70-1.30); GLOMERULAR FILTRATION RATE > 60.0 (>49); GLUCOSE, FASTING 106 MG/DL (74-106); MAGNESIUM LEVEL 2.1 MG/DL (1.8-2.4); POTASSIUM SERUM 4.4 MMOL/L (3.5-5.1); SODIUM LEVEL 143 MMOL/L (136-145); TOTAL PROTEIN 6.8 G/DL (5.7-8.2)
[2024-11-10 14:18] LABS: BASO # 0.1 10^3/uL (0.0-0.2); BASO % 0.9 % (0.0-1.0); EOS # 0.2 10^3/uL (0.0-0.5); EOS % 2.2 % (0.0-3.0); HEMATOCRIT 41.4 % (42.0-52.0); HEMOGLOBIN 13.3 g/dl (13.5-17.5); LYMPH # 0.6 10^3/uL (1.5-5.0); MEAN CORPUSCULAR HEMOGLOBIN 26.8 pg (27.0-33.0); MEAN CORPUSCULAR HGB CONC 32.1 g/dl (32.0-36.5); MEAN CORPUSCULAR VOLUME 83.3 fl (80.0-96.0); MONO # 0.9 10^3/uL (0.0-0.8); MONO % 13.3 % (2.0-8.0); NEUTROPHILS % 73.9 % (36.0-66.0); PLATELET COUNT, AUTOMATED 389 10^3/uL (150-450); RED BLOOD COUNT 4.97 10^6/uL (4.30-6.10); WHITE BLOOD COUNT 6.8 10^3/uL (4.0-10.0)
== END ==
LOC: M SFHCADAM 09:54
PROVIDERS: ATTEND Physician Assistant
DX: K57.92 Diverticulitis of intestine, part unspecified, without perforation or abscess without bleeding (principal); I50.33 Acute on chronic diastolic (congestive) heart failure; E66.01 Morbid (severe) obesity due to excess calories; R06.09 Other forms of dyspnea

== ENCOUNTER → 2024-11-21 | Outpatient (REF) | payer BC ==
[2024-11-21 15:08] LABS: BLOOD UREA NITROGEN 24 MG/DL (9-23); CALCIUM LEVEL 9.2 MG/DL (8.3-10.6); CARBON DIOXIDE LEVEL 31 MMOL/L (20-31); CHLORIDE LEVEL 104 MMOL/L (98-107); CREATININE FOR GFR 1.14 MG/DL (0.70-1.30); GLOMERULAR FILTRATION RATE > 60.0 (>49); GLUCOSE, FASTING 103 MG/DL (74-106); POTASSIUM SERUM 4.1 MMOL/L (3.5-5.1); SODIUM LEVEL 143 MMOL/L (136-145)
== END ==
LOC: M SFHCADAM 10:06
PROVIDERS: ATTEND Physician Assistant
DX: I50.33 Acute on chronic diastolic (congestive) heart failure (principal)

== ENCOUNTER → 2024-12-01 | Outpatient (CLI) | payer BC | LOC: M ADAMS 12:56 | PROVIDERS: ATTEND Family Medicine | DX: J45.901 Unspecified asthma with (acute) exacerbation (principal) ==

== ENCOUNTER → 2024-12-26 | Outpatient (REF) | payer BC ==
[2024-12-26 14:22] LABS: BLOOD UREA NITROGEN 20 MG/DL (9-23); CALCIUM LEVEL 9.8 MG/DL (8.3-10.6); CARBON DIOXIDE LEVEL 31 MMOL/L (20-31); CHLORIDE LEVEL 101 MMOL/L (98-107); CREATININE FOR GFR 1.22 MG/DL (0.70-1.30); GLOMERULAR FILTRATION RATE > 60.0 (>49); GLUCOSE, FASTING 141 MG/DL (74-106); SODIUM LEVEL 143 MMOL/L (136-145)
== END ==
LOC: M SFHCADAM 09:03
PROVIDERS: ATTEND Family Medicine
DX: J45.40 Moderate persistent asthma, uncomplicated (principal); I50.33 Acute on chronic diastolic (congestive) heart failure

== ENCOUNTER → 2025-03-21 | Outpatient (CLI) | payer BC | LOC: M RAD 17:05 | PROVIDERS: ATTEND Family Medicine | DX: J45.40 Moderate persistent asthma, uncomplicated (principal); D86.9 Sarcoidosis, unspecified; R91.8 Other nonspecific abnormal finding of lung field; J47.9 Bronchiectasis, uncomplicated; J84.9 Interstitial pulmonary disease, unspecified ==

== ENCOUNTER → 2025-08-07 | Outpatient (CLI) | payer BC, MEDICARE ==
[~2025-08-07] MED LIST changes: -IBUP1TAB6 PO; +SFHIBU600 PO
== END ==
LOC: M RAD 14:54
PROVIDERS: ATTEND Internal Medicine Pulmonary Disease
DX: R91.8 Other nonspecific abnormal finding of lung field (principal)

== ENCOUNTER → 2025-08-20 | Outpatient (REF) | payer BC ==
[2025-08-20 14:23] LABS: PLATELET COUNT, AUTOMATED 295 10^3/uL (150-450)
[2025-08-20 14:33] LABS: ALT/SGPT 39.0 U/L (7.0-40); AST/SGOT 27.0 U/L (<34); CALCIUM LEVEL 8.9 MG/DL (8.3-10.6); CARBON DIOXIDE LEVEL 28.0 MMOL/L (20-31); CHLORIDE LEVEL 106.0 MMOL/L (98-107); CHOLESTEROL LEVEL 180.0 MG/DL (<200); CHOLESTEROL RISK RATIO 4.1 (<5); CREATININE FOR GFR 1.29 MG/DL (0.70-1.30); FREE T4 1.11 NG/DL (0.89-1.76); GLOMERULAR FILTRATION RATE 61.2 (>49); LDL CHOLESTEROL 97.1 MG/DL (<100); NON-HDL-C 136.1 MG/DL; POTASSIUM SERUM 4.5 MMOL/L (3.5-5.1); PSA SCREENING 1.18 NG/ML (< 4.00); SODIUM LEVEL 142.0 MMOL/L (136-145); TRIGLYCERIDES LEVEL 195.0 MG/DL (<150)
[2025-08-20 14:59] LABS: ESTIMATED AVERAGE GLUCOSE 105.0 MG/DL (60-110)
== END ==
LOC: M SFHCADAM 10:37
PROVIDERS: ATTEND Family Medicine
DX: D86.9 Sarcoidosis, unspecified (principal); E66.01 Morbid (severe) obesity due to excess calories; E03.8 Other specified hypothyroidism; Z12.5 Encounter for screening for malignant neoplasm of prostate
CPT/HCPCS: 80053; 80061; 83036; 84439; 84443; 85027; G0103

== ENCOUNTER → 2025-10-02 | Outpatient (REF) | payer BC | LOC: M LAB REF 17:16 | PROVIDERS: ATTEND Otolaryngology | DX: C32.9 Malignant neoplasm of larynx, unspecified (principal); H60.8X2 Other otitis externa, left ear ==

== ENCOUNTER 2025-10-30 20:05 | Inpatient (IN) | payer BC, MEDICARE ==
[~2025-10-30] VITALS: Ht 182.9 cm; Wt 136.4 kg
[2025-10-30 20:52] LABS: ABG BASE EXCESS 2.4 (-2.0-2.0); ABG HCO3 24.4 MMOL/L (22.0-26.0); ABG O2 SATURATION 94.2 % (95.0-99.0); ABG PARTIAL PRESSURE CO2 31.0 mmHg (35.0-45.0); ABG PARTIAL PRESSURE O2 63.2 mmHg (75.0-100.0); ABG STANDARD HCO3 26.5 MMOL/L. (22.0-26.0); ABG TOTAL CO2 25.4 MMOL/L (23.0-31.0); ABG pH (ARTERIAL) 7.514 UNITS (7.350-7.450)
[2025-10-30] MEDS: ACETAMINOPHEN *IV* 1,000 MG in IV 1 EA IV ONE (21:08)
[2025-10-30] MEDS: NS 500 ML IV ONE (21:08)
[2025-10-30 21:20] LABS: CK-MB VALUE MASS < 1.0 NG/ML (<3.6)
[2025-10-30 21:22] LABS: ALT/SGPT 44 U/L (7.0-40); AST/SGOT 38 U/L (<34)
[2025-10-30 21:24] LABS: FREE T4 1.51 NG/DL (0.89-1.76)
[2025-10-30 21:32] LABS: CPK CREATINE PHOSPHOKINASE 129 U/L (46-171)
[2025-10-30] MEDS: PIPERACILLIN/TAZOBACTAM SOD 4.5 GM in DEXTROSE 5% (D5W) ADV/MINI-BAG 50 ML IV ONE (21:33)
[2025-10-30 21:40] LABS: BASO # 0.0 10^3/uL (0.0-0.2); BASO % 0.1 % (0.0-1.0); EOS # 0.0 10^3/uL (0.0-0.5); EOS % 0.0 % (0.0-3.0); LYMPH # 0.2 10^3/uL (1.5-5.0); LYMPH % 1.6 % (24.0-44.0); MONO # 0.9 10^3/uL (0.0-0.8); MONO % 5.6 % (2.0-8.0); NEUTROPHILS # 14.2 10^3/uL (1.5-8.5); NEUTROPHILS % 92.0 % (36.0-66.0); PLATELET COUNT, AUTOMATED 241 10^3/uL (150-450)
[2025-10-30 21:56] LABS: CALCIUM LEVEL 8.6 MG/DL (8.3-10.6); CARBON DIOXIDE LEVEL 24 MMOL/L (20-31); CHLORIDE LEVEL 101 MMOL/L (98-107); CREATININE FOR GFR 1.11 MG/DL (0.70-1.30); GLOMERULAR FILTRATION RATE 73.2 (>49); POTASSIUM SERUM 4.6 MMOL/L (3.5-5.1); SODIUM LEVEL 136 MMOL/L (136-145)
[2025-10-30] MEDS ORDERED: ISOVUE-370 76% 100 ML VIAL As Ordered ONE (22:06)
[2025-10-30 22:36] LABS: CK-MB VALUE MASS < 1.0 NG/ML (<3.6)
[2025-10-30 22:38] LABS: CPK CREATINE PHOSPHOKINASE 109 U/L (46-171)
[2025-10-30] MEDS: NS (Normal Saline) 0.9% 1,000 ML IV SCH (22:39)
[2025-10-30] MEDS: VANCOMYCIN HCL 1,000 MG, VIAL MATE ADAPTER 1 EACH in NS 250 ML IV ONE (22:40)
[2025-10-30 22:49] LABS: KETONE, URINE AUTO RFX NEGATIVE (NEGATIVE); LEUKOCYTE ESTERASE UR AUTO RFX NEGATIVE (NEGATIVE); MUCUS, URINE RFX SMALL (NEGATIVE); NITRITE, URINE AUTO RFX NEGATIVE (NEGATIVE); RBC, URINE AUTO RFX 2 /HPF (0-3); SQUAM EPITHELIAL CELL UR AURFX 0 /HPF (0-6); WBC, URINE AUTO RFX 2 /HPF (0-3)
[2025-10-31] MEDS ORDERED: MOM 30 ML SUSPENSION UDC PO PRN (00:55)
[2025-10-31] MEDS: AZITHROMYCIN 250 MG TABLET PO SCH (03:00)
[2025-10-31] MEDS: cefTRIAXone SOD 2 GM in DEXTROSE 5% (D5W) ADV/MINI-BAG 50 ML IV SCH (03:00)
[2025-10-31] MEDS: KETOROLAC 30 MG/ML 1 ML VIAL IV ONE ×2 (03:00→21:22)
[2025-10-31] MEDS: ACETAMINOPHEN 500 MG TAB PO PRN (03:05)
[2025-10-31] MEDS: LEVOTHYROXINE 75 MCG TABLET (0.075 MG) PO SCH (06:00)
[2025-10-31] MEDS: ALBUTEROL SULFATE 2.5 MG/0.5 ML INH CONCENTRATE NEB SOLN NEB SCH (08:00)
[2025-10-31] MEDS ORDERED: ALBU2.5V10 INH (08:12)
[2025-10-31] MEDS ORDERED: SEMA1PEN4 SQ (08:12)
[2025-10-31] MEDS ORDERED: ACET1TAB55 PO (08:12)
[2025-10-31] MEDS ORDERED: SYNT75TA PO (08:12)
[2025-10-31] MEDS ORDERED: HOME MED LIST COMPLETE! XX SCH (08:15)
[2025-10-31] MEDS: ADVAIR HFA 230/21 MCG INHALER INH SCH (09:00)
[2025-10-31] MEDS: PANTOPRAZOLE 40MG TAB PO SCH (10:18)
[2025-10-31] MEDS: ENOXAPARIN 40 MG/0.4 ML SYRINGE (J1650 PER 10MG) SC SCH (10:18)
[2025-10-31 14:15] VITALS: BP 102/64; TEMP 99.7; O2SAT 96
[2025-10-31 15:28] VITALS: TEMP 99.3
[2025-10-31] MEDS: VANCOMYCIN HCL 1,000 MG, VIAL MATE ADAPTER 1 EACH in NS 250 ML IV ONE (16:47)
[2025-10-31 19:44] VITALS: BP 137/72; TEMP 101.6; O2SAT 94
[2025-10-31] MEDS: VANCOMYCIN HCL 1,000 MG, VIAL MATE ADAPTER 1 EACH in NS 250 ML IV SCH (19:53)
[2025-10-31 21:24] VITALS: TEMP 99.7
[2025-11-01 03:18] VITALS: TEMP 99.8
[2025-11-01 03:41] VITALS: BP 145/84; O2SAT 96
[2025-11-01 06:49] LABS: PLATELET COUNT, AUTOMATED 182 10^3/uL (150-450)
[2025-11-01 07:31] LABS: ALT/SGPT 47.0 U/L (7.0-40); AST/SGOT 33.0 U/L (<34); CALCIUM LEVEL 7.7 MG/DL (8.3-10.6); CARBON DIOXIDE LEVEL 22.0 MMOL/L (20-31); CHLORIDE LEVEL 104.0 MMOL/L (98-107); CREATININE FOR GFR 1.11 MG/DL (0.70-1.30); GLOMERULAR FILTRATION RATE 73.2 (>49); MAGNESIUM LEVEL 1.8 MG/DL (1.8-2.4); POTASSIUM SERUM 3.8 MMOL/L (3.5-5.1); SODIUM LEVEL 140.0 MMOL/L (136-145)
[2025-11-01] MEDS: VANCOMYCIN HCL 1,000 MG, VIAL MATE ADAPTER 1 EACH in NS 250 ML IV SCH (09:56)
[2025-11-01 12:00] VITALS: BP 140/77; TEMP 98.6; O2SAT 98
[2025-11-01 20:37] VITALS: BP 132/69; TEMP 98.1; O2SAT 94
[2025-11-02 04:58] VITALS: BP 134/78; TEMP 99; O2SAT 96
[2025-11-02 08:19] LABS: BASO # 0.0 10^3/uL (0.0-0.2); BASO % 0.3 % (0.0-1.0); EOS # 0.2 10^3/uL (0.0-0.5); EOS % 2.6 % (0.0-3.0); LYMPH # 0.3 10^3/uL (1.5-5.0); LYMPH % 4.3 % (24.0-44.0); MONO # 0.7 10^3/uL (0.0-0.8); MONO % 9.2 % (2.0-8.0); NEUTROPHILS # 6.6 10^3/uL (1.5-8.5); NEUTROPHILS % 83.0 % (36.0-66.0); PLATELET COUNT, AUTOMATED 212 10^3/uL (150-450)
[2025-11-02 08:46] LABS: CALCIUM LEVEL 7.7 MG/DL (8.3-10.6); CARBON DIOXIDE LEVEL 23 MMOL/L (20-31); CHLORIDE LEVEL 106 MMOL/L (98-107); CREATININE FOR GFR 0.91 MG/DL (0.70-1.30); GLOMERULAR FILTRATION RATE > 90.0 (>49); POTASSIUM SERUM 3.7 MMOL/L (3.5-5.1); SODIUM LEVEL 138 MMOL/L (136-145)
[2025-11-02 12:00] VITALS: BP 128/81; TEMP 98.4; O2SAT 97
[2025-11-02] MEDS: AMPICILLIN SOD/SULBACTAM SOD 3 GM in DEXTROSE 5% (D5W) MINI-BAG PLU 100 ML IV SCH (15:56)
[2025-11-02 20:00] VITALS: BP 135/84; TEMP 99; O2SAT 96
[2025-11-03 03:30] VITALS: BP 142/80; TEMP 98.7; O2SAT 97
[2025-11-03 06:02] LABS: BASO # 0.0 10^3/uL (0.0-0.2); BASO % 0.3 % (0.0-1.0); EOS # 0.4 10^3/uL (0.0-0.5); EOS % 5.5 % (0.0-3.0); LYMPH # 0.5 10^3/uL (1.5-5.0); LYMPH % 6.4 % (24.0-44.0); MONO # 0.7 10^3/uL (0.0-0.8); MONO % 9.5 % (2.0-8.0); NEUTROPHILS # 5.5 10^3/uL (1.5-8.5); NEUTROPHILS % 77.7 % (36.0-66.0); PLATELET COUNT, AUTOMATED 246 10^3/uL (150-450)
[2025-11-03 06:27] LABS: CALCIUM LEVEL 8.0 MG/DL (8.3-10.6); CARBON DIOXIDE LEVEL 24 MMOL/L (20-31); CHLORIDE LEVEL 105 MMOL/L (98-107); CREATININE FOR GFR 0.82 MG/DL (0.70-1.30); GLOMERULAR FILTRATION RATE > 90.0 (>49); POTASSIUM SERUM 3.5 MMOL/L (3.5-5.1); SODIUM LEVEL 140 MMOL/L (136-145)
[2025-11-03] MEDS ORDERED: AMOX875T2 PO (09:55)
[2025-11-03 11:57] VITALS: BP 125/75; TEMP 97.5; O2SAT 95
[2025-11-04 01:48] LABS: URINE STREP PNEUMONIAE ANTIGEN Not Detected (Not Detected)
== END 2025-11-03 13:56 | disposition home or self-care (01) | DRG 720 ==
LOC: M ED 20:05 → M ED INP 10-31 00:53 → EEVIPCON 10-31 00:53 → M MSPAV 10-31 13:55
PROVIDERS: ADMIT Student in an Organized Health Care Education/Training Program; ATTEND Family Medicine
DX: A41.9 Sepsis, unspecified organism (principal); J18.9 Pneumonia, unspecified organism; J45.901 Unspecified asthma with (acute) exacerbation; Z68.41 Body mass index [BMI] 40.0-44.9, adult; K21.9 Gastro-esophageal reflux disease without esophagitis; G47.33 Obstructive sleep apnea (adult) (pediatric); L03.116 Cellulitis of left lower limb; E66.01 Morbid (severe) obesity due to excess calories; E03.9 Hypothyroidism, unspecified; Z85.818 Personal history of malignant neoplasm of other sites of lip, oral cavity, and pharynx; Z79.890 Hormone replacement therapy; Z79.899 Other long term (current) drug therapy; Z88.8 Allergy status to other drugs, medicaments and biological substances; Z91.018 Allergy to other foods; Z91.048 Other nonmedicinal substance allergy status